=== PATIENT | male | born 1970 | race American Indian/Alaskan Native ===

== ENCOUNTER 2019-09-24 05:32 | Emergency (ER) | payer OTHER ==
[2019-09-24 06:21] LABS: Basophils # (Auto) 0.1 K/mm3 (0.0-0.1); Basophils % (Auto) 1.1 % (0.0-1.8); Eosinophils % (Auto) 0.4 % (0.0-4.3); Hemoglobin 17.7 gm/dl (11.8-15.2); Lymphocytes # (Auto) 2.4 K/mm3 (1.2-5.4); Lymphocytes % (Auto) 34.1 % (13.4-35.0); Mean Corpuscular HGB Conc 34 % (32-34); Mean Corpuscular Volume 86 fl (84-94); Monocytes # (Auto) 0.5 K/mm3 (0.0-0.8); Monocytes % (Auto) 7.7 % (0.0-7.3); Red Blood Count 6.13 M/mm3 (3.65-5.03); Red Cell Distribution Width 13.1 % (13.2-15.2)
[2019-09-24 06:40] LABS: Bacteria,Urine 1+ /HPF (Negative); Bilirubin,Urine NEG (Negative); Blood,Urine SM (Negative); Color,Urine Yellow (Yellow); Mucus,Urine FEW /HPF; Protein,Urine <15 mg/dL mg/dL (Negative); Urobilinogen,Urine < 2.0 mg/dL (<2.0)
[2019-09-24 06:43] LABS: Alanine Aminotransferase 45 units/L (7-56); Albumin 4.4 g/dL (3.9-5); BUN/Creatinine Ratio 20; Blood Urea Nitrogen 30 mg/dL (9-20); Calcium 9.7 mg/dL (8.4-10.2); Hemolysis Index 6
[2019-09-24] MEDS ORDERED: LACTATED RINGERS 1,000 ML IV ONE (06:58)
[2019-09-24] MEDS ORDERED: SODIUM CHLORIDE 0.9% 1000 ML 1,000 ML IV ONE ×2 (06:58→06:59)
[2019-09-24] MEDS ORDERED: INSULIN REGULAR, HUMAN 100 UNITS/1 ML IV ONE (06:59)
[2019-09-24 07:38] LABS: Platelet Count 231 K/mm3 (140-440)
--- NOTE | 2019-09-24 08:51 | Emergency Department Report ---
ED General Adult HPI - General Chief complaint: Hyperglycemia Stated complaint: URINATING A LOT Time Seen by Provider: 09/24/19 07:15 Source: patient Mode of arrival: Ambulatory Limitations: No Limitations - History of Present Illness Initial comments: This is a 48-year-old male patient has a history of type 2 diabetes he states that he stopped taking metformin about a month ago to try new herbal product. He is complaining of frequent urination dry mouth weight loss and muscle cramping times one week. He denies fever chills vomiting diarrhea no chest pain or shortness of breath - Related Data Previous Rx's Medication Instructions Recorded Last Taken Type metFORMIN [Glucophage] 500 mg PO QDAY #30 tab 09/24/19 Unknown Rx Allergies Allergy/AdvReac Type Severity Reaction Status Date / Time chocolate flavor Allergy Hives Verified 09/24/19 05:47 strawberry Allergy Hives Verified 09/24/19 05:47 ED Review of Systems ROS: Stated complaint: URINATING A LOT Other details as noted in HPI Comment: All other systems reviewed and negative Constitutional: malaise. denies: chills, fever ENT: other (dry mouth) Respiratory: denies: cough, shortness of breath Cardiovascular: denies: chest pain, palpitations, dyspnea on exertion Endocrine: increased thirst, increased urine, unexplained weight loss Gastrointestinal: denies: abdominal pain, nausea, vomiting, diarrhea, constipation Genitourinary: frequency Musculoskeletal: denies: back pain Skin: denies: rash Neurological: denies: headache, weakness Psychiatric: denies: anxiety, depression ED Past Medical Hx - Past Medical History Previous Medical History?: Yes Hx Diabetes: Yes - Surgical History Past Surgical History?: No - Social History Smoking Status: Current Every Day Smoker Substance Use Type: None - Medications Home Medications: Home Medications Medication Instructions Recorded Confirmed Last Taken Type metFORMIN [Glucophage] 500 mg PO QDAY #30 tab 09/24/19 Unknown Rx ED Physical Exam - General Limitations: No Limitations General appearance: alert, in no apparent distress - Head Head exam: Present: atraumatic - Eye Eye exam: Present: normal appearance. Absent: scleral icterus, conjunctival injection - ENT ENT exam: Present: normal exam, mucous membranes dry - Neck Neck exam: Present: normal inspection, full ROM. Absent: tenderness - Respiratory Respiratory exam: Present: normal lung sounds bilaterally. Absent: respiratory distress, wheezes, rales - Cardiovascular Cardiovascular Exam: Present: tachycardia - GI/Abdominal GI/Abdominal exam: Present: soft, normal bowel sounds. Absent: distended, tenderness, guarding, rebound - Extremities Exam Extremities exam: Present: normal inspection, full ROM - Neurological Exam Neurological exam: Present: alert, oriented X3, normal gait - Psychiatric Psychiatric exam: Present: normal affect - Skin Skin exam: Present: warm, dry, intact, normal color ED Course Vital Signs 09/24/19 05:39 Temperature 97.9 F Pulse Rate 131 H Respiratory 18 Rate Blood Pressure 157/97 O2 Sat by Pulse 97 Oximetry - Reevaluation(s) Reevaluation #1: 09/24/19 09:36 Patient received 2 L of normal saline repeat glucose is 176 patient verbalized feeling better ED Medical Decision Making - Lab Data Result diagrams: 09/24/19 05:59 09/24/19 05:59 - Medical Decision Making 48-year-old celia known history of diabetes. He stopped taking metformin 1 month. He then developed frequent urination weight loss dry mouth and and muscle cramping. Serum glucose was 577M/ Urine with trace ketones VBG pH 7.41. Long discussion with the patient regarding the dangers of not taking diabetic medication as prescribed such as blindness kidney failure diabetic neuropathy increased infections and heart disease. Patient states that he wanted to try herbal treatment but is now convinced that he needs to take metformin. Critical Care Time: No Critical care attestation.: If time is entered above; I have spent that time in minutes in the direct care of this critically ill patient, excluding procedure time. ED Disposition Clinical Impression: Hyperglycemia due to type 2 diabetes mellitus Qualifiers: Diabetes mellitus nursing home insulin use: without nursing home use Qualified Code(s): E11.65 - Type 2 diabetes mellitus with hyperglycemia Disposition: DC-01 TO HOME OR SELFCARE Is pt being admited?: No Does the pt Need Aspirin: No Condition: Stable Instructions: Diabetes Mellitus Type 2 in Adults (ED), How to Check Your Blood Sugar (ED), Meal Planning with Diabetes Exchanges (DC) Additional Instructions: Take your medication as prescribe. Follow up with your doctor. Or with [facility] or with Dr. Joshua Young. Return to the ER for any worsening symptoms such as pain fever and inability to eat Prescriptions: metFORMIN [Glucophage] 500 mg PO QDAY #30 tab Referrals: PRIMARY CARE, [Primary Care Provider] - 3-5 Days JOSHUA YOUNG MD [Staff Physician] - 3-5 Days Time of Disposition: 09:47
[2019-09-24 09:46] VITALS: BP 132/92
== END 2019-09-24 10:04 | disposition home or self-care (01) ==
LOC: ED 05:32
DX: E11.65 Type 2 diabetes mellitus with hyperglycemia (principal); F17.200 Nicotine dependence, unspecified, uncomplicated; Z91.018 Allergy to other foods
CPT/HCPCS: 36415; 80053; 81001; 82805; 82962; 85025; 96361; 96374; 99283; J7030; J1815; J7120